=== PATIENT | male | born 1985 | race Hispanic/Latino ===

== ENCOUNTER 2018-01-17 11:13 | Emergency (ER) | payer SELFPAY ==
--- NOTE | 2018-01-17 13:45 | RAD ---
RIGHT HAND 2 VIEWS: HISTORY: Right hand pain. Splinter in the right thumb was removed by him about 2 minutes ago. Increased pain and swelling to that area. FINDINGS/IMPRESSION: No bony abnormality is seen. No radiopaque foreign body is identified. POS: [id number]
== END 2018-01-17 13:15 | disposition home or self-care (01) ==
LOC: ERS 11:13
DX: L03.011 Cellulitis of right finger (principal); F17.210 Nicotine dependence, cigarettes, uncomplicated